=== PATIENT | female | born 1985 | race Hispanic/Latino ===

== ENCOUNTER 2023-12-14 07:32 | Observation (INO) | payer OTHER ==
[~2023-12-14 07:32] MED LIST: Oxymetazoline HCl 0.05% ( 15 ML ) ONE
[2023-12-14] MEDS ORDERED: PROPOFOL 20 ML ONE (07:43)
[2023-12-14] MEDS ORDERED: fentaNYL 50 mcg/mL 1 mL Vial ONE ×3 (07:43→09:56)
[2023-12-14] MEDS ORDERED: Lidocaine 2% PF 5 ML VIAL ONE (07:43)
[2023-12-14] MEDS ORDERED: Ondansetron PF 4 MG/2 ML Vial ONE (07:43)
[2023-12-14] MEDS ORDERED: Dexamethasone 20 MG/5 ML VIAL ONE (07:43)
[2023-12-14] MEDS ORDERED: Midazolam HCl 2 mg/2 ml Vial ONE (07:49)
[2023-12-14] MEDS ORDERED: SUGAMMADEX SODIUM 200 MG/2 ML VIAL ONE ×2 (08:02→10:57)
[2023-12-14] MEDS ORDERED: EPINEPHrine 1 MG/ML VIAL ONE (08:18)
[2023-12-14] MEDS ORDERED: Oxymetazoline HCl 0.05% ( 15 ML ) ONE (08:18)
[2023-12-14] MEDS ORDERED: Lidocaine 1% (PF) 30 ML VIAL ONE (08:18)
[2023-12-14] MEDS ORDERED: Mupirocin 2% Ointment 22 GM Tube ONE (08:22)
[2023-12-14] MEDS ORDERED: Acetaminophen 325 MG TAB PO PRN (08:30)
[2023-12-14] MEDS ORDERED: Ondansetron ODT 4 MG TAB PO PRN (08:30)
[2023-12-14] MEDS ORDERED: Calcium Carbonate 500 MG ChewTAB PO PRN (08:30)
[2023-12-14] MEDS ORDERED: Ondansetron PF 4 MG/2 ML Vial IVP PRN (08:30)
[2023-12-14] MEDS: Sodium Chloride 0.65% Nasal 44 ML BOT EA NARE SCH (12:13)
[2023-12-14] MEDS: Acetaminophen W/ Codeine 5 ML UDCUP PO PRN (12:34)
[2023-12-14] MEDS: Amoxicillin 250 mg/5 ml (250ML BOT) Oral Susp. PO SCH (14:05)
[2023-12-14] MEDS: Oxymetazoline HCl 0.05% ( 15 ML ) NASAL PRN (14:07)
[2023-12-14] MEDS: Ibuprofen 400 MG TAB PO PRN (15:09)
[2023-12-14 15:13] VITALS: BMI 33.7
[2023-12-15] MEDS: Ibuprofen 200 MG TAB PO PRN (00:44)
[2023-12-15] MEDS: Guaifenesin DM 100-10/5 ML UDCUP PO PRN (04:49)
[2023-12-15 09:05] VITALS: BP 119/73; TEMP 98.1
== END 2023-12-15 12:10 | disposition home or self-care (01) ==
LOC: CSHSDC 07:32 → CSHTELE 07:49
PROVIDERS: ADMIT Otolaryngology Otolaryngic Allergy; ATTEND Otolaryngology Otolaryngic Allergy
PROC: 0CTQXZZ Resection of Adenoids, External Approach (ICD-10-PCS; principal; 2023-12-15)
PROC: 0CTPXZZ Resection of Tonsils, External Approach (ICD-10-PCS; 2023-12-15)
PROC: 09BM8ZZ Excision of Nasal Septum, Via Natural or Artificial Opening Endoscopic (ICD-10-PCS; 2023-12-15)
PROC: 09TL8ZZ Resection of Nasal Turbinate, Via Natural or Artificial Opening Endoscopic (ICD-10-PCS; 2023-12-15)
DX: J35.3 Hypertrophy of tonsils with hypertrophy of adenoids (principal); J32.9 Chronic sinusitis, unspecified; J34.2 Deviated nasal septum; J34.3 Hypertrophy of nasal turbinates; J30.1 Allergic rhinitis due to pollen; Z79.899 Other long term (current) drug therapy
CPT/HCPCS: 88304; 94640; 94760; 94762; J0171; J1100; J2001; J2250; J2405; J2704; J3010